=== PATIENT | male | born 1990 | race American Indian/Alaskan Native ===

== ENCOUNTER 2017-05-20 16:31 | Emergency (ER) | payer MEDICAID ==
[2017-05-20 16:45] VITALS: BMI 22.6
[2017-05-20 16:49] VITALS: BP 122/76; PULSE 76; RESP 16; TEMP 98.6; O2SAT 99
[2017-05-20] MEDS ORDERED: cefTRIAXone (Rocephin) 250 mg Inj IM STA (16:56)
--- NOTE | 2017-05-20 17:04 | ED PDOC ---
Arrival/HPI - General Chief Complaint: Male Genitourinary Time Seen by Provider: 05/20/17 16:41 Historian: Patient - History of Present Illness Narrative History of Present Illness (Text): 05/20/17 17:01 26-year-old male presents Today with penile discharge. Patient states for the past 2 days he's noticed a white discharge from the penis. Patient states his girlfriend told him she was just diagnosed with chlamydia. Patient denies abdominal pain. No nausea or vomiting. Denies testicular pain. Denies fevers or chills. Patient denies prior history of STD. No other complaints Symptom Onset: Sudden Symptom Course: Unchanged Quality: Burning Severity Level: 2 Past Medical History - Provider Review Nursing Documentation Reviewed: Yes - Travel History Have you recently traveled outside [place] w/in the past 3 mons?: No - Infectious Disease Hx of Infectious Diseases: None - Tetanus Immunization Tetanus Immunization: Unknown - Psychiatric Hx Substance Use: No - Anesthesia Hx Anesthesia: No Hx Anesthesia Reactions: No Hx Malignant Hyperthermia: No Family/Social History - Physician Review Nursing Documentation Reviewed: Yes Family/Social History: Unknown Family HX Smoking Status: Never Smoked Hx Alcohol Use: No Hx Substance Use: No Allergies/Home Meds Allergies/Adverse Reactions: Allergies No Known Allergies Allergy (Verified 05/20/17 16:56) Home Medications: Home Meds Medication Instructions Recorded Confirmed No Known Home Med 05/20/17 05/20/17 Review of Systems - Review of Systems Constitutional: absent: Fatigue, Fevers Respiratory: absent: SOB, Cough Cardiovascular: absent: Chest Pain, Palpitations Gastrointestinal: absent: Abdominal Pain, Nausea, Vomiting Genitourinary Male: Dysuria, Other (penile discharge). absent: Urinary Output Changes Musculoskeletal: absent: Arthralgias Skin: absent: Rash, Pruritis Neurological: absent: Headache Physical Exam Vital Signs Reviewed: Yes Vital Signs Temp Pulse Resp BP Pulse Ox 05/20/17 16:44 98.6 F 76 16 122/76 99 Temperature: Afebrile Blood Pressure: Normal Pulse: Regular Respiratory Rate: Normal Appearance: Positive for: Well-Appearing, Non-Toxic, Comfortable Pain Distress: None Mental Status: Positive for: Alert and Oriented X 3 - Systems Exam Head: Present: Atraumatic Mouth: Present: Moist Mucous Membranes Neck: Present: Normal Range of Motion Respiratory/Chest: Present: Clear to Auscultation, Good Air Exchange. No: Respiratory Distress, Accessory Muscle Use Cardiovascular: Present: Regular Rate and Rhythm, Normal S1, S2. No: Murmurs Abdomen: Present: Normal Bowel Sounds. No: Tenderness, Distention, Peritoneal Signs, Rebound, Guarding Genitourinary Male: Present: Normal External Genitalia, Circumcised Penis, Penile Discharge (white discharge noted), Other (chaperoned byDALY Luis). No: Testicle Tenderness, Penile Swelling, Testicle Swelling, Prostate Tenderness Neurological: Present: GCS=15, Speech Normal Skin: Present: Warm, Dry Psychiatric: Present: Alert, Oriented x 3 Medical Decision Making ED Course and Treatment: 05/20/17 17:03 Patient is nontoxic well-appearing in no distress with stable vital signs Ceftriaxone 250 mg IM Zithromax 1 g p.o. given Gonorrhea and Chlamydia cultures are pending. Advised patient to refrain from sex for 10 days followup with the primary care physician within the next 2 days or return if symptoms worsen persist or if new symptoms develop. Patient verbalizes understanding of discharge instructions and need for immediate followup. all aspects of this case were discussed the attending of record. Impression: Urethritis Follow up primary care physician within the next 2 days Return if symptoms worsen persist or if new symptoms develop. - Medication Orders Current Medication Orders: Discontinued Medications Azithromycin (Zithromax) 1,000 mg PO STAT STA PRN Reason: Protocol Stop: 05/20/17 16:57 Ceftriaxone Sodium (Rocephin) 250 mg IM STAT STA PRN Reason: Protocol Stop: 05/20/17 16:57 Disposition/Present on Arrival - Present on Arrival Any Indicators Present on Arrival: No History of DVT/PE: No History of Uncontrolled Diabetes: No Urinary Catheter: No History of Decub. Ulcer: No History Surgical Site Infection Following: None - Disposition Have Diagnosis and Disposition been Completed?: Yes Diagnosis: Urethritis Disposition: HOME/ ROUTINE Disposition Time: 17:00 Patient Plan: Discharge Condition: GOOD Discharge Instructions (ExitCare): Sexually Transmitted Diseases (ED), Safe Sex (ED) Additional Instructions: Follow up primary care physician within the next 2 days Return if symptoms worsen persist or if new symptoms develop. Referrals: José Luis Huynh MD [Staff Provider] - Follow up with primary Aj Mac MD [Staff Provider] - Follow up with primary [facility] [place] - Follow up with primary
== END 2017-05-20 17:22 | disposition home or self-care (01) ==
LOC: ED 16:31
DX: N34.2 Other urethritis (principal)
CPT/HCPCS: 87491; 87591; 96372; 99282; J0696

== ENCOUNTER 2017-05-25 17:59 | Emergency (ER) | payer MEDICAID ==
[2017-05-25 17:59] VITALS: BMI 22.6
[2017-05-25 18:18] VITALS: BP 120/70; PULSE 74; RESP 18; TEMP 98; O2SAT 99
--- NOTE | 2017-05-25 18:23 | ED PDOC ---
Arrival/HPI - General Chief Complaint: Male Genitourinary Time Seen by Provider: 05/25/17 18:02 Historian: Patient - History of Present Illness Narrative History of Present Illness (Text): 05/25/17 18:21 26 y/o male, here because he received a call from me about +gonorrhea result which he never call me back and no result was discuss. Pt. stated that he had penile discharge which resolved after rocephine IM and azithromycin po 1gm. Pt. stated that he feels well, his other sexual partners also were prophylatically treated for gonorrhea/chlamydia as well, no abdominal or pelvis pain, no night sweat, no dizziness, no other medical or psychological complaints. Past Medical History - Provider Review Nursing Documentation Reviewed: Yes - Infectious Disease Hx of Infectious Diseases: None - Tetanus Immunization Tetanus Immunization: Unknown - Psychiatric Hx Substance Use: No - Anesthesia Hx Anesthesia: No Hx Anesthesia Reactions: No Hx Malignant Hyperthermia: No Family/Social History - Physician Review Nursing Documentation Reviewed: Yes Family/Social History: Unknown Family HX Smoking Status: Never Smoked Hx Alcohol Use: No Hx Substance Use: No Allergies/Home Meds Allergies/Adverse Reactions: Allergies No Known Allergies Allergy (Verified 05/25/17 18:15) Home Medications: Home Meds Medication Instructions Recorded Confirmed No Known Home Med 05/20/17 05/25/17 Review of Systems - Review of Systems Constitutional: absent: Fatigue, Fevers Eyes: absent: Vision Changes ENT: absent: Hearing Changes Respiratory: absent: SOB, Cough Cardiovascular: absent: Chest Pain Gastrointestinal: absent: Abdominal Pain, Nausea, Vomiting Genitourinary Male: absent: Dysuria, Frequency, Hematuria, Urinary Output Changes Musculoskeletal: absent: Arthralgias, Back Pain Skin: absent: Rash, Pruritis Neurological: absent: Headache Physical Exam Vital Signs Reviewed: Yes Vital Signs Temp Pulse Resp BP Pulse Ox 05/25/17 18:12 98 F 74 18 120/70 99 Temperature: Afebrile Blood Pressure: Normal Pulse: Regular Respiratory Rate: Normal Appearance: Positive for: Well-Appearing, Non-Toxic, Comfortable Pain Distress: None Mental Status: Positive for: Alert and Oriented X 3 - Systems Exam Head: Present: Atraumatic, Normocephalic Pupils: Present: PERRL Extroacular Muscles: Present: EOMI Conjunctiva: Present: Normal Mouth: Present: Moist Mucous Membranes Neck: Present: Normal Range of Motion Respiratory/Chest: Present: Clear to Auscultation, Good Air Exchange. No: Respiratory Distress, Accessory Muscle Use Cardiovascular: Present: Regular Rate and Rhythm, Normal S1, S2. No: Murmurs Abdomen: Present: Normal Bowel Sounds. No: Tenderness, Distention, Peritoneal Signs Back: Present: Normal Inspection Upper Extremity: Present: Normal Inspection. No: Cyanosis, Edema Lower Extremity: Present: Normal Inspection. No: Edema Neurological: Present: GCS=15, Speech Normal, Motor Func Grossly Intact, Gait Normal, Memory Normal Skin: Present: Warm, Dry, Normal Color. No: Rashes Psychiatric: Present: Alert, Oriented x 3, Normal Insight, Normal Concentration Medical Decision Making ED Course and Treatment: 05/25/17 18:24 -Pt. received appropriate treatment, +gonorrhea noted, discussed about the result. -Discharge home with education on use condom in the future, follow up with your own pmd within 2 days, return to the ER for any new or worsening signs or symptoms. - PA / TEMPORARY STAFF ACCOUNTANT / Resident Statement MD/DO has reviewed & agrees with the documentation as recorded. Disposition/Present on Arrival - Present on Arrival Any Indicators Present on Arrival: No History of DVT/PE: No History of Uncontrolled Diabetes: No Urinary Catheter: No History of Decub. Ulcer: No History Surgical Site Infection Following: None - Disposition Have Diagnosis and Disposition been Completed?: Yes Diagnosis: General medical exam Disposition: HOME/ ROUTINE Disposition Time: 18:25 Patient Plan: Discharge Condition: GOOD Additional Instructions: -Discharge home with education on use condom in the future, follow up with your own pmd within 2 days, return to the ER for any new or worsening signs or symptoms. Referrals: [facility] at [facility] [place] [Outside] - Follow up with primary Forms: WORK NOTE
== END 2017-05-25 18:24 | disposition home or self-care (01) ==
LOC: ED 17:59
DX: Z00.00 Encounter for general adult medical examination without abnormal findings (principal)

== ENCOUNTER 2018-02-06 17:56 | Emergency (ER) | payer SELFPAY ==
[2018-02-06 18:52] VITALS: BMI 24.0
[2018-02-06 18:54] VITALS: TEMP 97.6
[2018-02-06] MEDS ORDERED: cefTRIAXone (Rocephin) 250 mg Inj IM STA (19:12)
--- NOTE | 2018-02-06 19:13 | ED PDOC ---
Arrival/HPI - General Chief Complaint: Medical Clearance Time Seen by Provider: 02/06/18 19:08 Historian: Patient - History of Present Illness Narrative History of Present Illness (Text): 02/06/18 19:09 27 y/o male, pmh including chlamydia, nkda, c/o penile discharge and dysuria since monday. Pt. has history of gonorrhea/chlamydia in the past, stated that this feels like his usual episode, no urinary frequency or urgency but admits dysuria with thick white penile discharge without lesions, admits have new sexual partner with sexual intercourse without any condoms on, last sexual encounter about 1 week ago, no testicular pain or fever/chills, no abdominal or pelvic pain, no other medical or psychological complaints. Past Medical History - Provider Review Nursing Documentation Reviewed: Yes - Infectious Disease Hx of Infectious Diseases: None - Tetanus Immunization Tetanus Immunization: Unknown - Psychiatric Hx Substance Use: No - Anesthesia Hx Anesthesia: No Hx Anesthesia Reactions: No Hx Malignant Hyperthermia: No Family/Social History - Physician Review Nursing Documentation Reviewed: Yes Family/Social History: Unknown Family HX Smoking Status: Never Smoked Hx Alcohol Use: Yes Frequency of alcohol use: Daily Hx Substance Use: No Allergies/Home Meds Allergies/Adverse Reactions: Allergies No Known Allergies Allergy (Verified 02/06/18 18:52) Home Medications: Home Meds Medication Instructions Recorded Confirmed No Known Home Med 05/20/17 02/06/18 Review of Systems - Review of Systems Constitutional: absent: Fatigue, Fevers Eyes: absent: Vision Changes ENT: absent: Hearing Changes Respiratory: absent: SOB, Cough Cardiovascular: absent: Chest Pain Gastrointestinal: absent: Abdominal Pain, Nausea, Vomiting Genitourinary Male: Dysuria, Other (+penile discharge). absent: Frequency, Hematuria, Urinary Output Changes Musculoskeletal: absent: Arthralgias, Back Pain Skin: absent: Rash, Pruritis Neurological: absent: Headache, Dizziness Psychiatric: absent: Anxiety, Depression, Suicidal Ideation Physical Exam Vital Signs Reviewed: Yes Vital Signs Temp Pulse Resp BP Pulse Ox 02/06/18 18:53 97.6 F 55 L 19 120/71 99 Temperature: Afebrile Blood Pressure: Normal Pulse: Bradycardic Respiratory Rate: Normal Appearance: Positive for: Well-Appearing, Non-Toxic, Comfortable Pain Distress: None Mental Status: Positive for: Alert and Oriented X 3 - Systems Exam Head: Present: Atraumatic, Normocephalic Pupils: Present: PERRL Extroacular Muscles: Present: EOMI Conjunctiva: Present: Normal Mouth: Present: Moist Mucous Membranes Neck: Present: Normal Range of Motion Respiratory/Chest: Present: Clear to Auscultation, Good Air Exchange. No: Respiratory Distress, Accessory Muscle Use Cardiovascular: Present: Regular Rate and Rhythm, Normal S1, S2. No: Murmurs Abdomen: No: Tenderness, Distention, Peritoneal Signs Genitourinary Male: Present: Normal External Genitalia, Circumcised Penis, Other (female student services coordinator: SMALL BUSINESS BANKING OFFICERDALY Arboleda). No: Lesions, Penile Discharge, Testicle Tenderness, Penile Swelling, Masses, Erythema, Hernias, Testicle Swelling Back: Present: Normal Inspection Upper Extremity: Present: Normal Inspection. No: Cyanosis, Edema Lower Extremity: Present: Normal Inspection. No: Edema Neurological: Present: GCS=15, CN II-XII Intact, Speech Normal Skin: Present: Warm, Dry, Normal Color. No: Rashes Psychiatric: Present: Alert, Oriented x 3, Normal Insight, Normal Concentration Medical Decision Making ED Course and Treatment: 02/06/18 19:18 -UA ordered 02/06/18 19:52 -UA show no UTI. -I explained to the patient that this is likely gonorrhea/chlamydia which he agreed, request to be prophylatically treated as well and he refused HIV test. I discussed with the patient that he should notify all his sexual partners for the gonorrhea/chlamydia test or prophylatically treatment and avoid sex for 7 days, pt. verbally expressed understanding. -Rocephine 250mg IM and azithromycin 1000mg po ordered in the ER. -Discharge home with education on take tylenol as needed for pain, follow up with your own pmd within 5-7 days for gonorrhea/chlamydia/HIV testing and avoid having sex for 5-7 days, notify all your sexual partners for the gonorrhea/ chlamydia test or prophylactically treatment, return to the ER for any new or worsening signs or symptoms. - Lab Interpretations Lab Results: Lab Results 02/06/18 19:10: Urine Color Yellow, Urine Appearance Clear, Urine pH 6.0, Ur Specific [place] >= 1.030, Urine Protein Negative, Urine Glucose (UA) Negative, Urine Ketones Negative, Urine Blood Negative, Urine Nitrate Negative, Urine Bilirubin Negative, Urine Urobilinogen 0.2, Ur Leukocyte Esterase Negative - Medication Orders Current Medication Orders: Discontinued Medications Azithromycin (Zithromax) 1,000 mg PO STAT STA PRN Reason: Protocol Stop: 02/06/18 19:13 Last Admin: 02/06/18 19:40 Dose: 1,000 mg Ceftriaxone Sodium (Rocephin) 250 mg IM STAT STA PRN Reason: Protocol Stop: 02/06/18 19:13 Last Admin: 02/06/18 19:40 Dose: 250 mg IM Administration Charges Document 02/06/18 19:40 EQ (Rec: 02/06/18 19:40 EQ [facility] [id number]) Injection Site MAR Injection Site Left Deltoid Charges for Administration # of IM Administrations 1 - PA / BELT BUILDER HELPER / Resident Statement MD/DO has reviewed & agrees with the documentation as recorded. Disposition/Present on Arrival - Present on Arrival Any Indicators Present on Arrival: No History of DVT/PE: No History of Uncontrolled Diabetes: No Urinary Catheter: No History of Decub. Ulcer: No History Surgical Site Infection Following: None - Disposition Have Diagnosis and Disposition been Completed?: Yes Diagnosis: Penile discharge, History of unprotected sex Disposition: HOME/ ROUTINE Disposition Time: 19:22 Patient Plan: Discharge Patient Problems: Current Active Problems Problem Status Onset History of unprotected sex Acute Penile discharge Acute Condition: GOOD Additional Instructions: -Discharge home with education on take tylenol as needed for pain, follow up with your own pmd within 5-7 days for gonorrhea/chlamydia/HIV testing and avoid having sex for 5-7 days, notify all your sexual partners for the gonorrhea/ chlamydia test or prophylactically treatment, return to the ER for any new or worsening signs or symptoms. Referrals: Aj Mac MD [Staff Provider] - Follow up with primary Mike Man MD [Staff Provider] - Follow up with primary Forms: [employer] ([place]), WORK NOTE
[2018-02-06 19:38] LABS: URINE BILIRUBIN NEGATIVE (NEGATIVE); URINE BLOOD NEGATIVE (NEGATIVE); URINE GLUCOSE (UA) NEGATIVE (NEGATIVE); URINE PROTEIN NEGATIVE mg/dL (<30 mg/dL); URINE UROBILINOGEN 0.2 E.U./dL (<1 E.U./dL)
[2018-02-06 19:42] LABS: URINE APPEARANCE CLEAR (CLEAR); URINE COLOR YELLOW (YELLOW); URINE LEUKOCYTE ESTERASE NEGATIVE Leu/uL (NEGATIVE)
[2018-02-06 20:13] VITALS: BP 118/73; PULSE 59; RESP 18; O2SAT 100
== END 2018-02-06 20:10 | disposition home or self-care (01) ==
LOC: ED 17:56
DX: R36.9 Urethral discharge, unspecified (principal)
CPT/HCPCS: 81003; 96372; 99282; J0696

== ENCOUNTER 2018-10-14 15:19 | Emergency (ER) | payer MEDICAID ==
[2018-10-14 15:44] VITALS: BMI 22.6
[2018-10-14 15:48] VITALS: RESP 18; TEMP 98.3
--- NOTE | 2018-10-14 15:52 | ED PDOC ---
Arrival/HPI - General Chief Complaint: Finger,Hand,&Wrist Time Seen by Provider: 10/14/18 15:20 Past Medical History - Infectious Disease Hx of Infectious Diseases: None - Tetanus Immunization Tetanus Immunization: Unknown - Psychiatric Hx Substance Use: No - Anesthesia Hx Anesthesia: No Hx Anesthesia Reactions: No Hx Malignant Hyperthermia: No Family/Social History Smoking Status: Never Smoked Hx Alcohol Use: Yes Hx Substance Use: No Allergies/Home Meds Allergies/Adverse Reactions: Allergies No Known Allergies Allergy (Verified 02/06/18 18:52) Home Medications: Home Meds Medication Instructions Recorded Confirmed No Known Home Med 05/20/17 02/06/18 Medical Decision Making - RAD Interpretation Radiology Orders: 10/14/18 15:45 WRIST, LEFT 3 VIEWS [RAD] Stat Disposition/Present on Arrival - Present on Arrival History of DVT/PE: No History of Uncontrolled Diabetes: No Urinary Catheter: No History of Decub. Ulcer: No History Surgical Site Infection Following: None - Disposition
--- NOTE | 2018-10-14 15:55 | ED PDOC ---
Arrival/HPI - General Chief Complaint: Finger,Hand,&Wrist Time Seen by Provider: 10/14/18 15:20 Historian: Patient - History of Present Illness Narrative History of Present Illness (Text): 10/14/18 15:51 A 28 year old male, with no significant past medical history, presents to the ED complaining of left wrist pain s/p fall 2 weeks ago. Patient reports he fell off the bed and landed on his left wrist. Patient notes pain is worse with movement and when carrying heavy objects. Patient also notes he has been taking Motrin with mild relief. Patient denies any open wounds, pain elsewhere, numbness, weakness or paresthesia. Time/Duration: Other (2 weeks) Symptom Onset: Gradual Symptom Course: Unchanged Activities at Onset: Light Context: Home Past Medical History - Provider Review Nursing Documentation Reviewed: Yes - Infectious Disease Hx of Infectious Diseases: None - Tetanus Immunization Tetanus Immunization: Unknown - Psychiatric Hx Substance Use: No - Anesthesia Hx Anesthesia: No Hx Anesthesia Reactions: No Hx Malignant Hyperthermia: No Family/Social History - Physician Review Nursing Documentation Reviewed: Yes Family/Social History: Unknown Family HX Smoking Status: Never Smoked Hx Alcohol Use: Yes Hx Substance Use: No Allergies/Home Meds Allergies/Adverse Reactions: Allergies No Known Allergies Allergy (Verified 02/06/18 18:52) Review of Systems - Physician Review All systems were reviewed & negative as marked: Yes - Review of Systems Constitutional: Normal. absent: Fatigue, Fevers Eyes: Normal. absent: Vision Changes Respiratory: Normal. absent: SOB, Cough Cardiovascular: Normal. absent: Chest Pain Gastrointestinal: Normal. absent: Nausea, Vomiting Musculoskeletal: Other (Left wrist pain) Skin: absent: Rash, Laceration, Cellulitis Neurological: Normal. absent: Headache, Dizziness Physical Exam Vital Signs Reviewed: Yes Vital Signs Temp Pulse Resp BP Pulse Ox 10/14/18 15:48 98.3 F 58 L 18 112/68 100 Temperature: Afebrile Blood Pressure: Normal Pulse: Bradycardic Respiratory Rate: Normal Appearance: Positive for: Well-Appearing, Non-Toxic, Comfortable Pain Distress: Mild Mental Status: Positive for: Alert and Oriented X 3 - Systems Exam Head: Present: Atraumatic, Normocephalic Pupils: Present: PERRL Extroacular Muscles: Present: EOMI Conjunctiva: Present: Normal Mouth: Present: Moist Mucous Membranes Neck: Present: Normal Range of Motion Respiratory/Chest: Present: Clear to Auscultation, Good Air Exchange. No: Respiratory Distress, Accessory Muscle Use Cardiovascular: Present: Regular Rate and Rhythm, Normal S1, S2, Peripheal Pulses Present Upper Extremity: Present: Normal Inspection, Normal ROM, NORMAL PULSES, Tenderness (to left dorsal medial wrist), Neurovascularly Intact, Capillary Refill < 2s. No: Swelling, Erythema, Temperature Abnormalties, Deformity, Other (Snuffbox tenderness) Lower Extremity: Present: Normal ROM Neurological: Present: GCS=15, Speech Normal, Motor Func Grossly Intact, Normal Sensory Function, Gait Normal Skin: Present: Warm, Dry, Normal Color. No: Rashes Psychiatric: Present: Alert, Oriented x 3, Normal Insight, Normal Concentration, Normal Affect, Normal Mood Medical Decision Making ED Course and Treatment: Initial Plan: -- Left wrist X-Ray -- Pain control Patient refusing pain medication at this time. Left wrist Xray negative for fracture or dislocation. Advised orthopedic and PMD followup. Pt placed in left wrist brace by me. Neurovascular exam remains unchanged after brace. Diagnostic testing results and plan of care discussed with patient. Strict instructions given regarding prescription use, importance of followup, and signs/symptoms to return to ER including worsening pain, numbness, weakness, paresthesias, or any other new/worsening symptoms. Pt verbalized understanding of discussion. Patient is A&Ox3, ambulating with steady gait, with vital signs stable for discharge. - RAD Interpretation Narrative RAD Interpretations (Text): 10/14/18 16:49 Left Wrist BONES: Bone alignment and mineralization are normal. There is no acute displaced fracture or bone destruction. JOINTS: Normal. No dislocation. SOFT TISSUES: Normal. OTHER FINDINGS: None. IMPRESSION: No acute displaced fracture or dislocation. Radiology Orders: 10/14/18 15:45 WRIST, LEFT 3 VIEWS [RAD] Stat Road Machinery Inspector: Radiologist - Scribe Statement The provider has reviewed the documentation as recorded by the Richelle Torres Provider Scribe Attestation: All medical record entries made by the Scribe were at my direction and personally dictated by me. I have reviewed the chart and agree that the record accurately reflects my personal performance of the history, physical exam, medical decision making, and the department course for this patient. I have also personally directed, reviewed, and agree with the discharge instructions and disposition. Disposition/Present on Arrival - Present on Arrival Any Indicators Present on Arrival: No History of DVT/PE: No History of Uncontrolled Diabetes: No Urinary Catheter: No History of Decub. Ulcer: No History Surgical Site Infection Following: None - Disposition Have Diagnosis and Disposition been Completed?: Yes Diagnosis: Wrist sprain Disposition: HOME/ ROUTINE Disposition Time: 16:18 Condition: GOOD Discharge Instructions (ExitCare): Wrist Sprain (DC) Additional Instructions: Ibuprofen every 8 hours as needed for pain, take with food Keep brace on until followup with orthopedics Followup with orthopedics within 2 days Followup with primary doctor within 2 days Return to ER with any new/worsening symptoms Prescriptions: Ibuprofen [Motrin Tab] 600 mg PO Q8 PRN #30 tab PRN Reason: Pain, Moderate (4-7) Referrals: [facility] [place] [facility] [place] - Follow up with primary PCP,NO [Primary Care Provider] - Follow up with primary Trae Fontanez MD [Staff Provider] - Follow up with primary Carmen Cerda MD [Medical Doctor] - Follow up with primary Forms: [employer] ([place]), WORK NOTE
--- NOTE | 2018-10-14 16:35 | RAD ---
Date of service: 10/14/2018 PROCEDURE: Left Wrist Radiographs. HISTORY: fall 2 weeks ago, medial pain COMPARISON: None. TECHNIQUE: 3 views obtained. FINDINGS: BONES: Bone alignment and mineralization are normal. There is no acute displaced fracture or bone destruction. JOINTS: Normal. No dislocation. SOFT TISSUES: Normal. OTHER FINDINGS: None. IMPRESSION: No acute displaced fracture or dislocation.
[2018-10-14 16:44] VITALS: BP 108/78; PULSE 61; O2SAT 99
== END 2018-10-14 16:45 | disposition home or self-care (01) ==
LOC: ED 15:19
DX: S63.502A Unspecified sprain of left wrist, initial encounter (principal); W06.XXXA Fall from bed, initial encounter